=== PATIENT | male | born 1940 | race Caucasian/White ===

== ENCOUNTER 2021-08-29 13:07 | Emergency (ER) | payer MEDICARE, BC ==
[~2021-08-29] VITALS: Ht 170.2 cm; Wt 89.1 kg
[~2021-08-29 13:07] MED LIST: ANTIBIOTIC UNKNOWN; ASPI325T6 PO; IRON; LIPITOR20 MG PO; LOPRESSOR 225 MG/TAB PO; NO HOME MEDICATIONS; VITAMIN C500 MG PO; ZESTRIL 5MG5 MG PO
[2021-08-29 13:12] VITALS: TEMP 97.8
[2021-08-29] MEDS ORDERED: CEPHALEXIN500 M1 PO ×2 (15:16)
[2021-08-29] MEDS ORDERED: ROXICODONE 55 MG/TAB PO ×3 (15:19→16:14)
[2021-08-29 15:20] VITALS: BP 140/72; PULSE 62
== END 2021-08-29 15:43 | disposition home or self-care (01) ==
LOC: COL.ER 13:07
DX: S62.624A Displaced fracture of middle phalanx of right ring finger, initial encounter for closed fracture (principal); S61.212A Laceration without foreign body of right middle finger without damage to nail, initial encounter; W23.1XXA Caught, crushed, jammed, or pinched between stationary objects, initial encounter
CPT/HCPCS: J0696